=== PATIENT | female | born 1990 | race African-American/Black ===

== ENCOUNTER 2016-12-08 19:20 | Emergency (ER) | payer MEDICAID ==
[~2016-12-08] VITALS: Ht 175.3 cm; Wt 89.5 kg
[2016-12-08 19:31] VITALS: BP 123/61; PULSE 74; RESP 16; TEMP 98.1; O2SAT 98
== END 2016-12-08 19:45 | disposition left against medical advice (07) ==
LOC: PHED 19:20
DX: R51 Headache (principal); Z53.21 Procedure and treatment not carried out due to patient leaving prior to being seen by health care provider
CPT/HCPCS: 99281